=== PATIENT | female | born 1945 | race Caucasian/White ===

== ENCOUNTER → 2016-07-25 | Outpatient (CLI) | payer OTHER ==
[~2016-07-25] MED LIST: ZNTT/150 PO
== END | disposition home or self-care (01) ==
LOC: C.PAPS 15:21
PROVIDERS: ATTEND Obstetrics & Gynecology
DX: Z12.4 Encounter for screening for malignant neoplasm of cervix (principal)

== ENCOUNTER → 2016-10-14 | Outpatient (CLI) | payer OTHER ==
--- NOTE | 2016-10-14 15:12 | DIAGNOSTIC IMAGING REPORT ---
TWO VIEW CHEST CLINICAL HISTORY: Bronchitis. Cough. FINDINGS: PA and lateral chest radiographs are compared to study dated 06/19/2013. The cardiomediastinal silhouette is unremarkable. Chronic interstitial thickening is similar to previous. Patchy airspace consolidation is identified at the right lung base. Calcified granulomas is seen in the left upper lobe. There is a questionable 10 mm left upper lobe nodular density. There is no pleural effusion or pneumothorax. The skeletal structures are osteopenic. Degenerative change and scoliosis are identified in the thoracic spine. IMPRESSION: 1. There is patchy airspace consolidation at the right lung base typical in appearance for pneumonia. Radiographic follow-up in 2-3 weeks is recommended to document resolution. 2. There is a questionable 10 mm nodular density in the left upper lobe. This may be on an inflammatory basis and should also be reassessed at follow-up. If this fails to resolve then a chest CT should be considered for further interrogation. Electronically signed by: Kiran Schreiber M.D. 10/14/2016 3:10 PM Dictated Date/Time: 10/14/2016 3:08 PM
== END | disposition home or self-care (01) ==
LOC: C.RAD 14:34
PROVIDERS: ATTEND Internal Medicine
DX: J40 Bronchitis, not specified as acute or chronic (principal)

== ENCOUNTER → 2016-11-04 | Outpatient (CLI) | payer OTHER ==
--- NOTE | 2016-11-04 09:39 | DIAGNOSTIC IMAGING REPORT ---
CHEST 2 VIEWS ROUTINE CLINICAL HISTORY: Evaluate for pneumonia. COMPARISON STUDY: Chest radiograph October 14, 2016. FINDINGS: There is no pneumothorax or pleural effusion. Right lower lobe airspace opacity has improved since exam of October 14, 2016. There is minimal residual linear opacity. A 1 cm nodular left midlung density is noted. This may be partially calcified. There is no evidence of pulmonary edema. Cardiac size is normal. IMPRESSION: 1. Interval improvement in right lower lobe airspace opacity with mild residual linear opacity which favors atelectasis or scarring. 2. Persistent 1 cm nodular left midlung density. This may be partially calcified and may be benign however a follow-up chest CT is recommended. Electronically signed by: Livan Garcia M.D. 11/04/2016 9:38 AM Dictated Date/Time: 11/04/2016 9:35 AM
== END | disposition home or self-care (01) ==
LOC: C.RAD 09:19
PROVIDERS: ATTEND Internal Medicine
DX: J18.9 Pneumonia, unspecified organism (principal)

== ENCOUNTER → 2016-11-28 | Outpatient (CLI) | payer OTHER ==
[~2016-11-28] MED LIST changes: +OPTIRAY 320 IV PRN
--- NOTE | 2016-11-28 15:37 | DIAGNOSTIC IMAGING REPORT ---
(CHEST) THORAX WITH CLINICAL HISTORY: 71 years-old Female presenting with PULMONARY NODULE. TECHNIQUE: Multidetector CT imaging of the chest was performed after the administration of intravenous contrast. IV contrast: 119 mL of Optiray 320. A dose lowering technique was used consistent with the principles of ALARA (as low as reasonably achievable). COMPARISON: Correlation made to chest x-ray from 11/04/2016. CT DOSE (mGy.cm): The estimated cumulative dose is 171.98 mGy.cm. FINDINGS: [employer] topogram: Unremarkable. On soft tissue windows, normal thyroid and thoracic inlet. No axillary, supraclavicular, hilar, or mediastinal lymphadenopathy. Minimal atherosclerosis of aortic arch. Normal heart size. No pericardial or pleural effusion. Small hypodensity in the posterior right hepatic lobe at the dome, indeterminate but possibly hepatic cyst or hamartoma. On lung windows, focal nodule in the left upper lobe along the major fissure measuring 11 mm containing a focus of calcification eccentrically (series 4 image 90). A low-density focus within this nodule demonstrates Hounsfield's units down to -47 suggestive of a potential fat component, although this is a diminutive component. Bandlike opacities at the lung bases, right greater than left, likely atelectasis. Mild bronchial wall thickening noted in the right lower lobe as well as vague groundglass opacities. On bone windows, multilevel degenerative change. IMPRESSION: 1. 11 mm solid left upper lobe pulmonary nodule. This may potentially represent a benign pulmonary hamartoma given the suspected presence of fat. However, as the possible region of fat is such a diminutive component, it is difficult to be definitive. Follow-up is recommended per Fleischner Society 2017 recommendations. 2. Vague groundglass opacities with mild bronchial wall thickening in the right lower lobe is concerning for bronchiolitis. 3. Bibasilar atelectasis greater on the right. Please refer to below summary of Fleischner Society 2017 recommendations for follow-up of incidental CT nodules (Roro Villagran et al. Guidelines for management of incidental pulmonary nodules detected on CT images: From the Fleischner Society 2017. Radiology 2017; 284: 228-243.) SOLID NODULES Single nodule; size <6 mm * Low risk patients: No routine follow-up * High risk patients: Optional CT at 12 months Single nodule; size 6-8 mm * Low risk patients: CT at 6-12 months, then consider CT at 18-24 months * High risk patients: CT at 6-12 months, then at 18-24 months Single nodule; size >8 mm * Either low or high risk patients: Considered CT at 3 months, PET/CT, or tissue sampling Multiple nodules; size <6 mm * Low risk patients: No routine follow up * High risk patients: Optional CT at 12 months Multiple nodules; size 6-8 mm * Low risk patients: CT at 3-6 months, then consider CT at 18-24 months * High risk patients: CT at 3-6 months, then at 18-24 months Multiple nodules; size >8 mm * Low risk patients: CT at 3-6 months, then consider at 18-24 months * High risk patients: CT at 3-6 months, then at 18-24 months Note: These guidelines apply to incidental nodules. These guidelines did not apply to patients younger than 35 years, immunocompromised patients, or patients with cancer. * Low risk patients: Minimal or absent history of smoking and/or other known risk factors * High risk patients: History of smoking, exposure to other carcinogens, emphysema, fibrosis, upper lobe location, family history of lung cancer, etc. * If a nodule up to 8 mm is partly solid or is ground glass further follow-up is required after 24 months to exclude possible slow growing adenocarcinoma SUBSOLID NODULES Single ground-glass nodule * Nodule size < 6 mm: No routine follow-up * Nodule size > or = 6 mm: CT at 6-12 months to confirm persistence, then CT every 2 years until 5 years Single part-solid nodule * Nodule size < 6 mm: No routine follow-up * Nodules size > or = 6 mm: CT at 3-6 months to confirm persistence. If unchanged and solid component remains < 6 mm, annual CT should be performed for 5 years Multiple nodules * Nodule size < 6 mm: CT at 3-6 months. If stable, consider CT at 2 and 4 years. * Nodules size > or = 6 mm: CT at 3-6 months. Subsequent management based on the most suspicious nodule(s) Electronically signed by: Ricardo Phillips M.D. 11/28/2016 3:36 PM Dictated Date/Time: 11/28/2016 3:26 PM
== END | disposition home or self-care (01) ==
LOC: C.CTS 15:09
PROVIDERS: ATTEND Internal Medicine
DX: R91.1 Solitary pulmonary nodule (principal); R91.8 Other nonspecific abnormal finding of lung field

== ENCOUNTER → 2016-12-05 | Outpatient (CLI) | payer OTHER ==
[~2016-12-05] MED LIST changes: -OPTIRAY 320 IV PRN
[2016-12-05 15:51] LABS: BASO % 0.1 %; BASO ABS # 0.01 K/uL (0-0.2); COMPLETE YES; EOS % 0.8 %; HEMATOCRIT 44.3 % (37-47); IG% 0.3 %; LYMPH % 27.1 %; LYMPH ABS # 2.07 K/uL (1.2-3.4); MEAN CELL VOLUME 94.7 fL (80-100); MEAN CORPUSCULAR HEMOGLOBIN 31.8 pg (25-34); MEAN CORPUSCULAR HGB CONC 33.6 g/dl (32-36); MEAN PLATELET VOLUME 10.8 fL (7.4-10.4); MONO % 6.3 %; NEUT % 65.4 %; PLATELET COUNT 261 K/uL (130-400); RED BLOOD COUNT 4.68 M/uL (4.2-5.4); WHITE BLOOD COUNT 7.64 K/uL (4.8-10.8)
[2016-12-05 15:59] LABS: ALT/SGPT 43 U/L (12-78); AST/SGOT 16 U/L (15-37); BLOOD UREA NITROGEN 17 mg/dl (7-18); BUN/CREATININE RATIO 17.7 (10-20); CALCIUM 9.2 mg/dl (8.5-10.1); CARBON DIOXIDE 32 mmol/L (21-32); CHLORIDE 101 mmol/L (98-107); CREATININE 0.97 mg/dl (0.60-1.20); GLUCOSE 103 mg/dl (70-99); POTASSIUM 3.7 mmol/L (3.5-5.1); SODIUM 138 mmol/L (136-145)
[2016-12-05 16:02] LABS: ALB/GLOB RATIO 1.1 (0.9-2); ALKALINE PHOSPHATASE 90 U/L (45-117)
== END | disposition home or self-care (01) ==
LOC: C.LABSPEC 14:43
PROVIDERS: ATTEND Internal Medicine
DX: L29.9 Pruritus, unspecified (principal)

== ENCOUNTER → 2017-03-31 | Outpatient (CLI) | payer OTHER ==
[2017-03-31 14:29] LABS: CHOLESTEROL 224 mg/dl (0-200); CHOLESTEROL/HDL RATIO 2.5; HDL CHOLESTEROL 90 mg/dl; TRIGLYCERIDES 112 mg/dl (0-150); VERY LOW DENSITY LIPOPROT CALC 22 mg/dl
[2017-04-01 07:24] LABS: ESTIMATED AVERAGE GLUCOSE 123 mg/dl; HA1C FLAG Normal (Normal)
== END | disposition home or self-care (01) ==
LOC: C.LABSPEC 13:05
PROVIDERS: ATTEND Internal Medicine
DX: R73.9 Hyperglycemia, unspecified (principal); E78.5 Hyperlipidemia, unspecified

== ENCOUNTER → 2017-04-02 | Outpatient (CLI) | payer OTHER | END | disposition home or self-care (01) | LOC: C.LABSPEC 12:19 | PROVIDERS: ATTEND Internal Medicine | DX: Z12.11 Encounter for screening for malignant neoplasm of colon (principal) ==

== ENCOUNTER → 2017-05-23 | Outpatient (CLI) | payer OTHER ==
--- NOTE | 2017-05-26 15:51 | MAMMOGRAPHY REPORT ---
BILATERAL DIGITAL SCREENING MAMMOGRAM TOMOSYNTHESIS WITH CAD: 05/23/2017 CLINICAL HISTORY: Routine screening. TECHNIQUE: Breast tomosynthesis in addition to standard 2D mammography was performed. Current study was also evaluated with a Computer Aided Detection (CAD) system. COMPARISON: Comparison is made to exams dated: 02/29/2016 mammogram, 01/10/2015 mammogram, 11/03/2013 ma mmogram, 08/13/2012 mammogram, 05/16/2011 mammogram, and 03/23/2010 mammogram - [facility] enter. BREAST COMPOSITION: The tissue of both breasts is heterogeneously dense, which may obscure small mas ses. FINDINGS: No suspicious masses, calcifications, or areas of architectural distortion are noted in ei ther breast. There has been no significant interval change compared to prior exams. IMPRESSION: ACR BI-RADS CATEGORY 2: BENIGN There is no mammographic evidence of malignancy. A 1 year screening mammogram is recommended. The pa tient will receive written notification of the results. Approximately 10% of breast cancers are not detected with mammography. A negative mammographic report should not delay biopsy if a clinically suggestive mass is present. Shivani Heard M.D. /:05/23/2017 13:59:38 Senior Military Analyst: Freddie BARROW(Kacie)(Teddy), [facility] letter sent: Normal 1/2 BI-RADS Code: ACR BI-RADS Category 2: Benign
== END | disposition home or self-care (01) ==
LOC: C.MAMM 13:37
PROVIDERS: ATTEND Obstetrics & Gynecology
DX: Z12.31 Encounter for screening mammogram for malignant neoplasm of breast (principal)

== ENCOUNTER → 2017-06-06 | Outpatient (CLI) | payer OTHER ==
[~2017-06-06] MED LIST changes: +OPTIRAY 320 IV PRN; +RANI150T85 PO; -ZNTT/150 PO
--- NOTE | 2017-06-06 10:31 | DIAGNOSTIC IMAGING REPORT ---
CHEST CT WITH CONTRAST CT DOSE: 183.93 mGy.cm HISTORY: Follow-up study in a patient with pulmonary nodule LT UPPER LOBE PULMONARY NODULE TECHNIQUE: Multiaxial CT images of the chest were performed following the intravenous administration of contrast. A dose lowering technique was utilized adhering to the principles of ALARA. COMPARISON: CT chest 11/28/2016. FINDINGS: Thyroid appears homogeneous. No pathologically enlarged lymph nodes of the chest identified. Mildly prominent 8 mm AP window lymph nodes are seen with areas of adjacent calcification. Calcified left hilar lymph nodes are seen. Heart is normal in size without pericardial effusion. Thoracic aorta is normal in both course and caliber without aneurysm or dissection. The opacified pulmonary arterial tree appears unremarkable. There is no pneumothorax, pleural effusion or focal airspace consolidation. Minimal dependent bibasilar atelectasis. Partially calcified 3 mm nodule of the right upper lobe is seen on image 105 series 4, unchanged. 3 mm nodule of the right middle lobe is seen on image 165 series 4, unchanged. Scattered calcified granulomas are seen within the lingula. 4 mm area of fissural lymph node is seen involving the left major fissure, image 155 series 4. Lobulated soft tissue attenuating lesion with adjacent calcifications along the superior margin again seen, 11 x 8 mm which is unchanged as seen on image 124 series 4 within the left upper lobe abutting the major fissure. Again, this lesion may contain a separate fat however the fact component is not measurable. Central airways are patent. No acute abnormality of the imaged upper abdomen identified. 7 mm low attenuating lesion of the hepatic dome suggests hepatic cyst. Soft tissues are unremarkable. Bones appear intact. Severe intervertebral disc space narrowing redemonstrated at T12-L1 and L1-L2. IMPRESSION: 1. Unchanged lobulated left upper lobe pulmonary nodule abutting the major fissure with peripheral calcifications and the possibility of central internal macroscopic fat redemonstrated which may reflect a hamartoma. Stability from prior study suggests benign etiology, however continued follow-up recommended. 2. Additional unchanged small pulmonary nodules as above. 3. Evidence of prior granulomatous disease. Please refer to below summary of Fleischner criteria recommendations for follow-up of incidental CT nodules (Roro Villagran, Guidelines for management of small pulmonary nodules detected on CT scans: A statement from the Fleischner Society, Radiology 237: [phone].) SOLID NODULES Solitary nodule size: <6 mm * Low risk patients: no follow-up needed * high risk patients: optional CT at 12 months Solitary nodule size: 6-8 mm * Low risk patients: follow-up at 6-12 months, then consider further follow-up at 18-24 months * high risk patients: initial follow-up CT at 6-12 months and then at 18-24 months if no change Solitary nodule size: >8 mm * either low or high risk patients - consider follow-up CT at 3 months, and/or CT-PET, and/or biopsy Multiple nodules size: <6 mm * Low risk patients: no routine follow-up * high risk patients: optional CT at 12 months Multiple nodules size: 6-8 mm * Low risk patients: follow-up at 3-6 months, then consider further follow-up at 18-24 months * high risk patients: follow-up at 3-6 months, then at 18-24 months if no change Multiple nodules size: >8 mm * Low risk patients: follow-up at 3-6 months, then consider further follow-up at 18-24 months * high risk patients: follow-up at 3-6 months, then at 18-24 months if no change Note: newly detected indeterminate nodule in persons 35 years of age or older. * Low risk patients: minimal or absent history of smoking and/or other known risk factors * high risk patients: history of smoking or of other known risk factors (e.g. first degree relative with lung cancer, or exposure to asbestos, radon, uranium) * if a nodule up to 8 mm is partly solid or is ground glass further follow-up is required after 24 months to exclude possible slow growing adenocarcinoma (NIRAV) The above report was generated using voice recognition software. It may contain grammatical, syntax or spelling errors. Electronically signed by: Joe Watson M.D. 06/06/2017 10:29 AM Dictated Date/Time: 06/06/2017 10:21 AM
== END | disposition home or self-care (01) ==
LOC: C.CTS 10:07
PROVIDERS: ATTEND Internal Medicine
DX: R91.1 Solitary pulmonary nodule (principal)

== ENCOUNTER 2020-07-24 23:51 | Observation (INO) ==
[2020-07-25] MEDS ORDERED: ALUMINUM/MAGNESIUM SUSP 30 ML UDC PO STA (00:07)
[2020-07-25] MEDS ORDERED: ASPIRIN CHEW 324 MG PO STA (00:07)
--- NOTE | 2020-07-25 00:18 | Emergency Department Note ---
Impression & Plan Chest pain, Elevated troponin I level, Abnormal EKG ED Provider Note NAME: DELMY LAMBERT AGE: 74 SEX: F : 1945 ARRIVES VIA: Walk-In INFORMANT: Patient, ED PROVIDER(S): Sriram Barrett DO CHIEF COMPLAINT: Chest pain HPI: The patient is a 74-year-old female who presented to the emergency department from home for an evaluation of chest pain. The patient has had multiple episodes of chest pain while at rest. She describes it as a sharp pain across her upper chest. She states that it goes to her shoulders as well as int o her neck. She thought it was related to her GERD history. She tried taking antacids for this without relief. She states she then had a couple episodes where she belched and then the pain somewhat improved. The patient had 3 different episodes this evening. The most recent episode was around 11:30 PM. She presented to the emergency department with her significant other because of the pain. She denies having any shortness of breath. She denies having any fever or cough. The patient denies having any lower extremity swelling. She has had no recent illnesses cough or fever. ROS: See above HPI for pertinent positives & negatives. A total of 10 systems reviewed and were otherwise negative. PAST MEDICAL HISTORY: See Below PAST SURGICAL HISTORY: See Below FAMILY HISTORY: See Below SOCIAL HISTORY: See Below HOME MEDICATIONS: See Below ALLERGIES: See Below VITALS: See Below PHYSICAL EXAMINATION: GENERAL: Patient is awake alert in no acute distress patient is resting comfortably and showing no signs of anxiety EYES: The conjunctivae are clear. The pupils are round and reactive. EARS, NOSE, MOUTH AND THROAT: The nose is without any evidence of any deformity. NECK: The neck is nontender and supple. RESPIRATORY: Normal respiratory effort is noted there is no evidence of wheezing rhonchi or rales CARDIOVASCULAR: Regular rate and rhythm noted there no murmurs rubs or gallops normal S1 normal S2. GASTROINTESTINAL: The abdomen is soft. Abdomen is nontender. MUSCULOSKELETAL/EXTREMITIES: There is no evidence of gross deformity full range of motion is noted in the hips and shoulders. SKIN: There was no pedal edema. There was no calf tenderness. NEUROLOGIC: Patient is awake alert and oriented x3. MEDICAL DECISION MAKING: The patient is a 74-year-old female who presented to the emergency department f or an evaluation of chest pain. The patient describes multiple episodes of chest discomfort that radiated to her shoulder as well as her neck that occurred prior to arrival. The patient at this time has no pain. She was treated with aspirin and Maalox in the emergency department. I discussed the patient's laboratory and radiographic studies with her. I also discussed the limitations of the emergency department work-up for chest pain with her. She was found to have a new right bundle branch block on her EKG compared to 2014. Whereas this is not specific for coronary syndrome paired with an elevation in her troponin I feel this may represent a high risk situation. For this reason I will discuss her case with the on-call [facility]. I feel the patient may require further inpatient testing. Triage Nursing notes reviewed. Prior medical records reviewed Vital Signs: reviewed and remarkable for elevated blood pressure. Differential diagnosis: Cardiac ischemia, aortic dissection, pulmonary embolism, pneumothorax, pneumonia, pericarditis, myocarditis, esophageal rupture, GERD, cholecystitis, pancreatitis, musculoskeletal, as well as other pathologies. ER treatment provided: See below Diagnostics interpreted by me: ECG: EKG was obtained in the emergency department. My interpretation is normal sinus rhythm at 72 bpm. There were no PVCs noted. Right bundle branch block pattern was noted. This was compared to a tracing from June 192013. The right bundle branch block pattern is new compared to the earlier tracing. Cardiac Monitoring: An order was placed for continuous cardiac monitoring. The monitor shows a rate of 85 bpm with sinus rhythm. Laboratory studies: As stated above and show below. Imaging studies: See below Consultation(s): 0105: Dr. White was notified about the patient. She is the on-call [facility] this evening. Past Med/Surg History Medical History Chest pain GERD (gastroesophageal reflux disease) Reflux Social History Smoking Status: Never smoker Feels Safe at Home: Yes Allergies Allergies Allergy/AdvReac Type Severity Reaction Status Date / Time adhesive Allergy Mild Unknown Unverified 07/25/20 00:21 Home Meds Home Medications Medication Instructions Recorded Confirmed famotidine [Pepcid] 20 - 40 mg PO DAILY PRN 07/25/20 07/25/20 pseudoephedrine HCl [Sudafed] 60 mg PO Q6H PRN 07/25/20 07/25/20 Results & Data (ED) Vital Signs Vital Signs - 24 hr 07/25/20 00:01 07/25/20 00:18 Temperature 36.8 C Temperature Source Temporal Artery Scan Pulse Rate 73 69 Pulse Rate from SpO2 Sensor 69 Respiratory Rate 18 18 Respiratory Effort / Characteristics Non-Labored Spontaneous Respiratory Depth Normal Blood Pressure 156/94 H 170/94 H Blood Pressure Mean 114 119 Pulse Oximetry 98 99 Oxygen Delivery Method Room Air Room Air Sepsis Recent Fever Within 48 Hours No Sepsis New/Unexplained Change in Mental Status No Sepsis Action Taken by Nursing No Action Required Home Medications Current Medication List: was personally reviewed by me Laboratory Data Attestation: I reviewed the patient's lab results. Result diagrams: 07/25/20 00:19 07/25/20 00:19 Lab Results 07/25/20 07/25/20 07/25/20 Range/Units 00:10 00:19 00:19 WBC 6.86 (4.8-10.8) K/uL RBC 4.41 (4.2-5.4) M/uL Hgb 14.1 (12.0-16.0) g/dL Hct 41.1 (37-47) % MCV 93.2 (80-100) fL MCH 32.0 (25-34) pg MCHC 34.3 (32-36) g/dL RDW Std Deviation 45.8 (36.4-46.3) fL RDW Coeff of Tanika 13.3 (11.5-14.5) % Plt Count 259 (130-400) K/uL MPV 10.0 (7.4-10.4) fL Immature Gran % (Auto) 0.0 % Neut % (Auto) 58.8 % Lymph % (Auto) 31.6 % [place] % (Auto) 7.6 % Eos % (Auto) 1.7 % Baso % (Auto) 0.3 % Neut # (Auto) 4.03 (1.4-6.5) K/uL Lymph # (Auto) 2.17 (1.2-3.4) K/uL [place] # (Auto) 0.52 (0.11-0.59) K/uL Eos # (Auto) 0.12 (0-0.5) K/uL Baso # (Auto) 0.02 (0-0.2) K/uL Immature Gran # (Auto) 0.00 (0.00-0.02) K/uL PT 10.0 (9.0-12.0) Seconds INR 1.0 (0.9-1.1) APTT 26.7 (21.0-31.0) Seconds PTT Ratio 1.0 Sodium (136-145) mmol/L Potassium (3.5-5.1) mmol/L Chloride (98-107) mmol/L Carbon Dioxide (21-32) mmol/L Anion Gap (3-11) BUN (7-18) mg/dl Creatinine (0.6-1.2) mg/dl Est Cr Clr Drug Dosing ml/min Est GFR ( Amer) Est GFR (Non-Af Amer) BUN/Creatinine Ratio (10-20) Glucose (70-99) mg/dl Calcium (8.5-10.1) mg/dl Total Bilirubin (0.2-1) mg/dl AST (15-37) U/L ALT (12-78) U/L Alkaline Phosphatase (45-117) U/L Troponin I (0-0.045) ng/ml Total Protein (6.4-8.2) gm/dl Albumin (3.4-5.0) gm/dl Globulin (2.5-4.0) gm/dl Albumin/Globulin Ratio (0.9-2) Lipase (73-393) U/L Urine Color Yellow Urine Appearance Clear (Clear) Urine pH 6.5 (4.5-7.5) Ur Specific [place] 1.013 (1.000-1.030) Urine Protein Negative (Negative) Urine Glucose (UA) Negative (Negative) Urine Ketones Negative (Negative) Urine Blood Trace H (Negative) Urine Nitrite Negative (Negative) Urine Bilirubin Negative (Negative) Urine Urobilinogen Negative (Negative) Ur Leukocyte Esterase Trace H (Negative) Urine WBC (Auto) 5-10 H (0-5) /hpf Urine RBC (Auto) 0-4 (0-4) /hpf U Hyaline Cast (Auto) 0 (0-5) /lpf U Epithel Cells (Auto) 0-5 (0-5) /lpf Urine Bacteria (Auto) Negative (Negative) 07/25/20 Range/Units 00:19 WBC (4.8-10.8) K/uL RBC (4.2-5.4) M/uL Hgb (12.0-16.0) g/dL Hct (37-47) % MCV (80-100) fL MCH (25-34) pg MCHC (32-36) g/dL RDW Std Deviation (36.4-46.3) fL RDW Coeff of Tanika (11.5-14.5) % Plt Count (130-400) K/uL MPV (7.4-10.4) fL Immature Gran % (Auto) % Neut % (Auto) % Lymph % (Auto) % [place] % (Auto) % Eos % (Auto) % Baso % (Auto) % Neut # (Auto) (1.4-6.5) K/uL Lymph # (Auto) (1.2-3.4) K/uL [place] # (Auto) (0.11-0.59) K/uL Eos # (Auto) (0-0.5) K/uL Baso # (Auto) (0-0.2) K/uL Immature Gran # (Auto) (0.00-0.02) K/uL PT (9.0-12.0) Seconds INR (0.9-1.1) APTT (21.0-31.0) Seconds PTT Ratio Sodium 137 (136-145) mmol/L Potassium 3.7 (3.5-5.1) mmol/L Chloride 104 (98-107) mmol/L Carbon Dioxide 30 (21-32) mmol/L Anion Gap 3.0 (3-11) BUN 21 H (7-18) mg/dl Creatinine 1.10 (0.6-1.2) mg/dl Est Cr Clr Drug Dosing 39.5 ml/min Est GFR ( Amer) 57.7 Est GFR (Non-Af Amer) 49.8 BUN/Creatinine Ratio 18.8 (10-20) Glucose 118 H (70-99) mg/dl Calcium 9.2 (8.5-10.1) mg/dl Total Bilirubin 0.4 (0.2-1) mg/dl AST 26 (15-37) U/L ALT 39 (12-78) U/L Alkaline Phosphatase 115 (45-117) U/L Troponin I 0.119 H* (0-0.045) ng/ml Total Protein 7.1 (6.4-8.2) gm/dl Albumin 3.6 (3.4-5.0) gm/dl Globulin 3.5 (2.5-4.0) gm/dl Albumin/Globulin Ratio 1.0 (0.9-2) Lipase 274 (73-393) U/L Urine Color Urine Appearance (Clear) Urine pH (4.5-7.5) Ur Specific [place] (1.000-1.030) Urine Protein (Negative) Urine Glucose (UA) (Negative) Urine Ketones (Negative) Urine Blood (Negative) Urine Nitrite (Negative) Urine Bilirubin (Negative) Urine Urobilinogen (Negative) Ur Leukocyte Esterase (Negative) Urine WBC (Auto) (0-5) /hpf Urine RBC (Auto) (0-4) /hpf U Hyaline Cast (Auto) (0-5) /lpf U Epithel Cells (Auto) (0-5) /lpf Urine Bacteria (Auto) (Negative) Administered Medications Discontinued Medications Al Hydrox/Mg Hydrox/Simethicone (Aluminum/Magnesium Susp 30 Ml Udc) 30 ml PO NOW STA Stop: 07/25/20 00:08 Last Admin: 07/25/20 00:24 Dose: 30 ml Documented by: [id number] Aspirin (Aspirin Chew 324 Mg) 324 mg PO NOW STA Stop: 07/25/20 00:08 Last Admin: 07/25/20 00:24 Dose: 324 mg Documented by: [id number] Imaging Data Attestation: I personally reviewed and interpreted this imaging study as follows: My Impression: 1 view chest x-ray was obtained in the emergency department. My interpretation is no free air, no definite infiltrate, no acute disease, there was calcification in the right hilum. This appears unchanged compared to a chest x-ray from June 192013. Discharge Plan Visit Data Chief Complaint: Chest Pain Stated Complaint: DON'T FEEL RIGHT,PAIN IN CHEST,SHOULDERS,HEARBURN ED Provider: Sriram Barrett Discharge Problem: Chest pain, Elevated troponin I level, Abnormal EKG Patient Disposition: Being Evaluated by Hospitalist Condition: Good Forms Stand Alone Forms: My [facility] Prescriptions Prescriptions: No Action famotidine [Pepcid] 20 mg Tablet 20 - 40 mg PO DAILY PRN (Reason: Heartburn) RF: 0 pseudoephedrine HCl [Sudafed] 60 mg Tablet 60 mg PO Q6H PRN (Reason: Congestion) RF: 0 Referrals Referrals: Lizandro Garcia MD [Primary Care Provider] - Discharge Problem: Chest pain Qualifiers: Chest pain type: unspecified Qualified Code(s): R07.9 - Chest pain, unspecified
[2020-07-25 00:30] LABS: Basophils # (auto) 0.02 K/uL (0-0.2); Basophils % (auto) 0.3 %; Eosinophils # (auto) 0.12 K/uL (0-0.5); Eosinophils % (auto) 1.7 %; Hematocrit (blood only) 41.1 % (37-47); Hemoglobin 14.1 g/dL (12.0-16.0); Lymphocytes # (auto) 2.17 K/uL (1.2-3.4); Lymphocytes % (auto) 31.6 %; Mean Corpuscular Hgb Conc 34.3 g/dL (32-36); Mean Corpuscular Volume 93.2 fL (80-100); Monocytes # (auto) 0.52 K/uL (0.11-0.59); Monocytes % (auto) 7.6 %; Neutrophils # (auto) 4.03 K/uL (1.4-6.5); Neutrophils % (auto) 58.8 %; Platelet Count 259 K/uL (130-400); RDW Coefficient of Variation 13.3 % (11.5-14.5); RDW Standard Deviation 45.8 fL (36.4-46.3); Red Blood Count 4.41 M/uL (4.2-5.4); White Blood Count 6.86 K/uL (4.8-10.8)
[2020-07-25 00:39] LABS: Appearance Urine Clear (Clear); Bacteria Urine Automated Negative (Negative); Bilirubin Urine Negative (Negative); Blood Urine Trace (Negative); Cast Urine Automated 0 /lpf (0-5); Color Urine Yellow; Epithelial Cell Urine Auto 0-5 /lpf (0-5); Glucose Urine UA Negative (Negative); Ketones Urine Negative (Negative); Leukocyte Esterase Urine Trace (Negative); Nitrite Urine Negative (Negative); Protein Urine Negative (Negative); RBC Urine Automated 0-4 /hpf (0-4); Specific Gravity Urine 1.013 (1.000-1.030); Urobilinogen Urine Negative (Negative); pH Urine 6.5 (4.5-7.5)
[2020-07-25 00:44] LABS: Partial Thromboplastin Time 26.7 Seconds (21.0-31.0)
[2020-07-25 00:48] LABS: Albumin Level 3.6 gm/dl (3.4-5.0); BUN Creatinine Ratio 18.8 (10-20); Calcium 9.2 mg/dl (8.5-10.1); Creatinine Clr Calc Pharmacy 39.5 ml/min; Est GFR (African American) 57.7; Est GFR (Non-African American) 49.8; Potassium 3.7 mmol/L (3.5-5.1)
[2020-07-25 00:53] LABS: Bilirubin,Total 0.4 mg/dl (0.2-1); Globulin 3.5 gm/dl (2.5-4.0); Total Protein 7.1 gm/dl (6.4-8.2); Troponin I 0.119 ng/ml (0-0.045)
[2020-07-25 02:19] LABS: Influenza A virus by PCR Negative (Neg); Influenza B virus by PCR Negative (Neg); RSV by PCR Negative (Neg); SARS CoV2 RNA(COVID-19) InHosp NEGATIVE (Negative)
--- NOTE | 2020-07-25 02:53 | History & Physical Report ---
Date of Service July 25, 2020 Assessment & Plan (1) Chest pain: 74yo C female presenting with several episodes of bandlike chest pain over the last 3 days. Patient had 3 episodes today. Troponin is elevated at 0.119. EKG with new RBBB. Patient presently with no chest discomfort. No history of CAD, DM, HTN or HLP. Patient is a non-smoker -Admit to medical with telemetry -Trend troponin q 6 hours. If repeat troponin is elevated will initiate heparin gtt -Check 2D echo -Check Lipid panel and Hgb AIC for risk stratification for possible CAD -ASA 81mg po daily for now -Nitro SL PRN chest pain -Cardiology consultation appreciated Present on Admission?: Yes (2) GERD (gastroesophageal reflux disease): Chronic -Continue Pepcid 40mg po daily F/E/N- Heplock. Electrolytes WNL - check Mg and replete as needed, NPO for now Ppx - SCDs Code - Full per discussion with patient Dispo - Observation to medical with telemetry Present on Admission?: Yes History of Present Illness Chief Complaint: chest Primary Care Provider: Lizandro Garcia MD Coni Kerns is a pleasant 74yo C female with history of GERD presenting with chest pain. Patient had initial episode of chest pain on 07/21/20. She was sitting at rest when she developed sudden onset of chest discomfort - bandlike across anterior chest and into her back. Pain was severe, 10/10 and lasted 1-2 minutes. She had associated nausea. Patient had recurrence of chest pain yesterday 07/24/20 x 3 episodes. Episodes occurred while patient was at rest and lasted 1-2 minutes. She had nausea as well as feeling hot. She has had increase in belching over the last several days as well. She denies SOB/palpitations/abdominal pain/vomiting/diarrhea/dizziness. Patient reports becoming mildly SOB with exertion such as climbing stairs - ongoing for "a while". She denies exertional chest discomfort No personal history of DM, HLP, CAD. No prior CHF or arrhythmia. She has never had a cardiac catheterization or seen a honing machine try out setter. She did have a stress test many years ago. No additional complaints at this time. ER Course: Maalox, ASA Allergies Allergy/AdvReac Type Severity Reaction Status Date / Time adhesive Allergy Mild Unknown Unverified 07/25/20 00:21 Home Medications Medication Instructions Recorded Confirmed Type famotidine [Pepcid] 20 - 40 mg PO DAILY PRN 07/25/20 07/25/20 History pseudoephedrine HCl [Sudafed] 60 mg PO Q6H PRN 07/25/20 07/25/20 History Past Med/Surg History Medical History (Updated 07/25/20 @ 03:51 by Daisy White DO) Chest pain GERD (gastroesophageal reflux disease) Surgical History (Updated 07/25/20 @ 03:44 by Daisy White DO) No significant past surgical history Family History (Updated 07/25/20 @ 03:44 by Daisy White DO) Other Diabetes Social History (Updated 07/25/20 @ 03:44 by Daisy White DO) Smoking Status: Never smoker Hx Alcohol Use: No Hx Substance Use: No Feels Safe at Home: Yes Review of Systems Review of Systems: All systems reviewed & are unremarkable except as noted in HPI & below Physical Exam Physical Exam: General: patient resting comfortably, NAD, non-toxic in appearance, AA&O x 4 Skin: warm, dry, intact, no rashes or lesions HEENT: NC/AT, PERRL, EOMI, anicteric sclera, conjunctiva without injection, external ear normal to inspection and nontender, nares patent, moist mucus membranes, dentition intact, no oropharyngeal lesions, neck supple, trachea midline, no LAD, no thyromegaly, no JVD Heart: +S1/S2, regular, no m/r/g, no reproducible chest wall pain or epigastric pain Lungs: equal air entry bilaterally, no rales/rhonchi/wheezes Abd: +BS, soft, NT/ND, no masses/organomegaly/ascites Ext: warm, 2+ pulses in UE/LE bilaterally, no clubbing/cyanosis or edema Neuro: nonfocal, patient AA&O x 4, speech intact, no facial droop, moving all extremities on command with equal strength 5/5 Results & Data Results & Data ([facility]) Vital Signs (Past 12 Hours) Vital Signs Temp Pulse Resp BP Pulse Ox 07/25/20 02:30 65 15 164/92 H 97 07/25/20 02:00 62 16 162/85 H 98 07/25/20 01:30 64 16 159/89 H 97 07/25/20 00:18 69 18 170/94 H 99 07/25/20 00:01 36.8 C 73 18 156/94 H 98 Laboratory Results Lab Results 07/25/20 07/25/20 07/25/20 Range/Units 00:10 00:19 00:19 WBC 6.86 (4.8-10.8) K/uL RBC 4.41 (4.2-5.4) M/uL Hgb 14.1 (12.0-16.0) g/dL Hct 41.1 (37-47) % MCV 93.2 (80-100) fL MCH 32.0 (25-34) pg MCHC 34.3 (32-36) g/dL RDW Std Deviation 45.8 (36.4-46.3) fL RDW Coeff of Tanika 13.3 (11.5-14.5) % Plt Count 259 (130-400) K/uL MPV 10.0 (7.4-10.4) fL Immature Gran % (Auto) 0.0 % Neut % (Auto) 58.8 % Lymph % (Auto) 31.6 % Ida % (Auto) 7.6 % Eos % (Auto) 1.7 % Baso % (Auto) 0.3 % Neut # (Auto) 4.03 (1.4-6.5) K/uL Lymph # (Auto) 2.17 (1.2-3.4) K/uL Ida # (Auto) 0.52 (0.11-0.59) K/uL Eos # (Auto) 0.12 (0-0.5) K/uL Baso # (Auto) 0.02 (0-0.2) K/uL Immature Gran # (Auto) 0.00 (0.00-0.02) K/uL PT 10.0 (9.0-12.0) Seconds INR 1.0 (0.9-1.1) APTT 26.7 (21.0-31.0) Seconds PTT Ratio 1.0 Sodium (136-145) mmol/L Potassium (3.5-5.1) mmol/L Chloride (98-107) mmol/L Carbon Dioxide (21-32) mmol/L Anion Gap (3-11) BUN (7-18) mg/dl Creatinine (0.6-1.2) mg/dl Est Cr Clr Drug Dosing ml/min Est GFR ( Amer) Est GFR (Non-Af Amer) BUN/Creatinine Ratio (10-20) Glucose (70-99) mg/dl Calcium (8.5-10.1) mg/dl Total Bilirubin (0.2-1) mg/dl AST (15-37) U/L ALT (12-78) U/L Alkaline Phosphatase (45-117) U/L Troponin I (0-0.045) ng/ml Total Protein (6.4-8.2) gm/dl Albumin (3.4-5.0) gm/dl Globulin (2.5-4.0) gm/dl Albumin/Globulin Ratio (0.9-2) Lipase (73-393) U/L Urine Color Yellow Urine Appearance Clear (Clear) Urine pH 6.5 (4.5-7.5) Ur Specific [place] 1.013 (1.000-1.030) Urine Protein Negative (Negative) Urine Glucose (UA) Negative (Negative) Urine Ketones Negative (Negative) Urine Blood Trace H (Negative) Urine Nitrite Negative (Negative) Urine Bilirubin Negative (Negative) Urine Urobilinogen Negative (Negative) Ur Leukocyte Esterase Trace H (Negative) Urine WBC (Auto) 5-10 H (0-5) /hpf Urine RBC (Auto) 0-4 (0-4) /hpf U Hyaline Cast (Auto) 0 (0-5) /lpf U Epithel Cells (Auto) 0-5 (0-5) /lpf Urine Bacteria (Auto) Negative (Negative) COVID-19 Eval Order SARS-CoV-2 (PCR) (Negative) Influenza Type A (PCR) (Neg) Influenza Type B (PCR) (Neg) RSV (RT-PCR) (Neg) 07/25/20 07/25/20 07/25/20 Range/Units 00:19 01:20 01:20 WBC (4.8-10.8) K/uL RBC (4.2-5.4) M/uL Hgb (12.0-16.0) g/dL Hct (37-47) % MCV (80-100) fL MCH (25-34) pg MCHC (32-36) g/dL RDW Std Deviation (36.4-46.3) fL RDW Coeff of Tanika (11.5-14.5) % Plt Count (130-400) K/uL MPV (7.4-10.4) fL Immature Gran % (Auto) % Neut % (Auto) % Lymph % (Auto) % Ida % (Auto) % Eos % (Auto) % Baso % (Auto) % Neut # (Auto) (1.4-6.5) K/uL Lymph # (Auto) (1.2-3.4) K/uL Ida # (Auto) (0.11-0.59) K/uL Eos # (Auto) (0-0.5) K/uL Baso # (Auto) (0-0.2) K/uL Immature Gran # (Auto) (0.00-0.02) K/uL PT (9.0-12.0) Seconds INR (0.9-1.1) APTT (21.0-31.0) Seconds PTT Ratio Sodium 137 (136-145) mmol/L Potassium 3.7 (3.5-5.1) mmol/L Chloride 104 (98-107) mmol/L Carbon Dioxide 30 (21-32) mmol/L Anion Gap 3.0 (3-11) BUN 21 H (7-18) mg/dl Creatinine 1.10 (0.6-1.2) mg/dl Est Cr Clr Drug Dosing 39.5 ml/min Est GFR ( Amer) 57.7 Est GFR (Non-Af Amer) 49.8 BUN/Creatinine Ratio 18.8 (10-20) Glucose 118 H (70-99) mg/dl Calcium 9.2 (8.5-10.1) mg/dl Total Bilirubin 0.4 (0.2-1) mg/dl AST 26 (15-37) U/L ALT 39 (12-78) U/L Alkaline Phosphatase 115 (45-117) U/L Troponin I 0.119 H* (0-0.045) ng/ml Total Protein 7.1 (6.4-8.2) gm/dl Albumin 3.6 (3.4-5.0) gm/dl Globulin 3.5 (2.5-4.0) gm/dl Albumin/Globulin Ratio 1.0 (0.9-2) Lipase 274 (73-393) U/L Urine Color Urine Appearance (Clear) Urine pH (4.5-7.5) Ur Specific [place] (1.000-1.030) Urine Protein (Negative) Urine Glucose (UA) (Negative) Urine Ketones (Negative) Urine Blood (Negative) Urine Nitrite (Negative) Urine Bilirubin (Negative) Urine Urobilinogen (Negative) Ur Leukocyte Esterase (Negative) Urine WBC (Auto) (0-5) /hpf Urine RBC (Auto) (0-4) /hpf U Hyaline Cast (Auto) (0-5) /lpf U Epithel Cells (Auto) (0-5) /lpf Urine Bacteria (Auto) (Negative) COVID-19 Eval Order CovFluRsv at [facility] SARS-CoV-2 (PCR) NEGATIVE (Negative) Influenza Type A (PCR) Negative (Neg) Influenza Type B (PCR) Negative (Neg) RSV (RT-PCR) Negative (Neg) Diagnostic Findings CXR - by my interpretation - lung nodule RIVAS present on prior study from 2017. Followup CT chest on 06/06/17 suggestive of hamartoma as well as evidence of prior granulomatous disease ECG Additional Comments: NSR at 72, RBBB present, new from prior study PG Care Time/CCT Total # of Minutes Spent Total Time Spent with Patient: Total time spent is greater than 50% in coordination of care (as documented) at patient's floor/unit and/or counseling patient: Coding Level of Care Code 39318 OBS Care - Level 2 Diagnoses Chest pain R07.9 Chest pain type: unspecified GERD (gastroesophageal reflux disease) K21.9 Esophagitis presence: esophagitis presence not specified (1) Chest pain Chest pain type: unspecified Qualified Code(s): R07.9 - Chest pain, unspecified (2) GERD (gastroesophageal reflux disease) Esophagitis presence: esophagitis presence not specified Qualified Code(s): K21.9 - Gastro-esophageal reflux disease without esophagitis
[2020-07-25] MEDS ORDERED: NITROGLYCERIN SL 0.4 MG/TAB TAB SL PRN (04:59)
[2020-07-25 06:05] LABS: Magnesium 2.4 mg/dl (1.8-2.4); Troponin I 0.082 ng/ml (0-0.045)
--- NOTE | 2020-07-25 06:50 | XRay Report ---
XR chest 1V portable HISTORY: 74 years-old Female Chest Pain acute atypical chest pain COMPARISON: Chest CT 06/06/2017, chest radiograph 11/04/2016 TECHNIQUE: Portable AP view of the chest FINDINGS: Cardiac silhouette is normal. Mild asymmetric right hilar prominence. No pneumothorax, pleural effusi on, airspace consolidation or overt pulmonary edema. Scattered calcified granulomata redemonstrated t hroughout the left lung. The previously noted noncalcified pulmonary nodules of the lungs are better characterized on comparison chest CT. Degenerative changes of the shoulders and spine. IMPRESSION: 1. No acute process. 2. Mild asymmetric right hilar fullness, possibly secondary to summation density with pulmonary vascu lature. Hilar adenopathy is also within the differential. ACT 112: Negative or not required by law. The above report was generated using voice recognition software. It may contain grammatical, syntax o r spelling errors. Electronically signed by: Joe Watson M.D. 07/25/2020 6:49 AM
[2020-07-25] MEDS ORDERED: amLODIPine BESYLATE 5 MG TAB PO ONE (09:04)
--- NOTE | 2020-07-25 09:08 | Cardiology Consultation ---
Date of Consultation July 25, 2020 Assessment & Plan (1) Chest pain: Given the increase in troponin in the presence of chest pain though atypical and new sob with exertion over the last couple of weeks as well as strong family history of cardiac events I think the best next step is to have Ms. Kerns proceed to a cardiac catheterization. Risks and benefits were discussed and she is agreeable. - consult Dr. Medina from interventional cardiology - continue NPO except for medications - initiate metoprolol and 2.5 mg of amlodipine for better blood pressure control - continue ASA as initiated in the ED - will start rosuvastatin 20 mg - repeat lipids ordered. Last lipids were drawn in 2019 and showed total cholesterol of 220, LDL 118, HDL 78 - no need for heparin drip at this time. - echo with LVH, no WMA, EF 60%. (2) Elevated troponin I level: (3) Hypertension: History of Present Illness Attending Physician: Bruce Santana History of Present Illness Ms. Kerns presented last night with complaints of bandlike chest pain starting on 07/21. It extended across her chest and wrapped around to her back. She initially thought maybe it was reflux as she has a history of GERD and she had had some belching but the pain was much more severe than she had experienced previously. It happened about 3 more times over the weekend lasting a few minutes. She had associated diaphoresis and nauseas. She was at rest when these instances occurred. She has not had the symptoms with exertion however she has noticed over the last couple of weeks that she is having more shortness of breath with exertion. She particularly noticed that she could no longer get up a flight of stairs without becoming dyspneic and that she was having trouble carrying on a conversation due to shortness of breath after ascending the stairs. EKG on admission shows new RBBB. Troponin peaked at 0.119 and has started to trend downward. Her blood pressures have been elevated. She is not sure what she normally runs as she does not check at home but she does note that she has never been told at the doctor that her blood pressure was high. She is otherwise quite healthy only taking occasional Sudafed and famotidine for GERD. She does have a family cardiac history. Her father at 62 of a heart attack and her mother had a heart attack at 81. She notes her grandfather also had an IN. She is a non smoker and no other tobacco use. Allergies Allergy/AdvReac Type Severity Reaction Status Date / Time adhesive Allergy Mild Unknown Unverified 07/25/20 00:21 Home Medications Medication Instructions Recorded Confirmed Type famotidine [Pepcid] 20 - 40 mg PO DAILY PRN 07/25/20 07/25/20 History pseudoephedrine HCl [Sudafed] 60 mg PO Q6H PRN 07/25/20 07/25/20 History Patient History Medical History (Updated 07/25/20 @ 09:14 by OLU Rodriguez) Chest pain GERD (gastroesophageal reflux disease) Surgical History (Updated 07/25/20 @ 03:44 by Daisy White DO) No significant past surgical history Family History (Updated 07/25/20 @ 03:44 by Daisy White DO) Other Diabetes Social History (Updated 07/25/20 @ 03:44 by Daisy White DO) Smoking Status: Never smoker Hx Alcohol Use: No Hx Substance Use: No Communication Ability: Effective Fun House Attendant Required: No Beliefs That Will Affect Care: None Current Living Situation: Spouse Feels Safe at Home: Yes Assistive Devices: Glasses Review of Systems Review of Systems: All systems reviewed & are unremarkable except as noted in HPI & below Physical Exam Constitutional: WD/WN, vitals as above Respiratory: normal respiratory effort, lungs clear to auscultation Cardiovascular: RRR, no murmur, no edema Musculoskeletal: no cyanosis or clubbing, extremities motor strength 5/5 Skin: no rashes, warm and dry Neurologic: moves all extremities and awake Psychiatric: A+Ox3, euthymic affect Results & Data ([facility]) Vital Signs (Past 12 Hours) Vital Signs Temp Pulse Pulse Resp BP BP Pulse Ox 07/25/20 08:00 79 07/25/20 05:12 36.7 C 78 24 173/113 H 98 07/25/20 04:30 63 14 155/89 H 95 07/25/20 04:00 66 14 141/83 H 97 07/25/20 03:30 63 14 157/88 H 99 07/25/20 03:00 69 15 158/95 H 98 07/25/20 02:30 65 15 164/92 H 97 07/25/20 02:00 62 16 162/85 H 98 07/25/20 01:30 64 16 159/89 H 97 07/25/20 00:18 69 18 170/94 H 99 07/25/20 00:01 36.8 C 73 18 156/94 H 98 (1) Chest pain Chest pain type: unspecified Qualified Code(s): R07.9 - Chest pain, unspecified
--- NOTE | 2020-07-25 09:11 | XCELERA ---
[id number]
[2020-07-25] MEDS ORDERED: SODIUM CHLORIDE 0.9% 1000ML 1,000 ML IV SCH ×2 (09:30→15:15)
[2020-07-25] MEDS: ROSUVASTATIN CALCIUM 20 MG TAB PO SCH (09:34)
[2020-07-25] MEDS: METOPROLOL SUCC 25MG EXT REL TAB PO SCH (09:34)
[2020-07-25] MEDS: ASPIRIN 81 MG ECTAB PO SCH (09:34)
[2020-07-25] MEDS: FAMOTIDINE 40 MG TABLET PO SCH (09:35)
[2020-07-25 10:19] LABS: Chol HDL Ratio 3; Cholesterol 204 mg/dl (0-200); HDL Cholesterol 76 mg/dl; LDL Cholesterol Calculated 115 mg/dl; Triglycerides 66 mg/dl (0-150); VLDL Cholesterol 13 mg/dl
[2020-07-25] MEDS ORDERED: MIDAZOLAM HCL 1 MG/ML 2ML VIAL ONE (12:59)
[2020-07-25] MEDS ORDERED: HEPARIN (PORCINE) 1000 UNIT/ML 10 ML (CATH LAB USE ONLY) ONE (12:59)
[2020-07-25] MEDS ORDERED: niCARdipine HCL INJ 2.5 MG/ML 10 ML AMP ONE (12:59)
[2020-07-25] MEDS ORDERED: fentaNYL citrate 100 MCG/2 ML VIAL ONE (12:59)
[2020-07-25] MEDS ORDERED: NITROGLYCERIN/D5W 100MCG/ML 20ML SYR ONE (13:00)
--- NOTE | 2020-07-25 13:36 | Pre Anesthesia Assessment ---
Date of Service July 25, 2020 Pre Sedation Assessment Vital Signs Temp Pulse Pulse Resp BP BP Pulse Ox 07/25/20 12:48 73 20 161/87 H 98 07/25/20 12:27 97.0 F L 07/25/20 11:58 62 21 150/82 H 97 07/25/20 09:27 73 20 156/97 H 07/25/20 08:51 70 19 162/100 H 97 07/25/20 08:00 97.9 F 79 07/25/20 05:12 98.1 F 78 24 173/113 H 98 07/25/20 04:30 63 14 155/89 H 95 07/25/20 04:00 66 14 141/83 H 97 07/25/20 03:30 63 14 157/88 H 99 07/25/20 03:00 69 15 158/95 H 98 07/25/20 02:30 65 15 164/92 H 97 07/25/20 02:00 62 16 162/85 H 98 07/25/20 01:30 64 16 159/89 H 97 07/25/20 00:18 69 18 170/94 H 99 07/25/20 00:01 98.2 F 73 18 156/94 H 98 Cardiovascular RRR, no murmur, no edema Respiratory normal respiratory effort, lungs clear to auscultation Pre-Sedation Airway Assessment Smoking Status: Never smoker Hx Sleep Apnea: No Hx Difficult Intubation: No Short, Thick Neck: No Thyromental Distance: > or= 3.5 Finger Breadths Oral Cavity: + Dentures Mallampati Class: III ASA: ASA2 NPO Status Date of Last Intake of Fluids: 07/25/20 Time of Last Intake of Fluids: 07:00 Last Oral Intake of Fluids Comment: sip with pills Date of Last Intake of Solid Food: 07/24/20 Time of Last Intake of Solid Foods: 17:30 Procedure Planning Contraindications for Sedation: none Current Medications Reviewed: Yes Notes The planned sedation has been discussed with the patient. Informed Consent was obtained. I have identified the patient, determined the appropriateness of sedation and have assessed the patient immediately prior to the procedure. All medicine(s) and interventions are by my order.
[2020-07-25] MEDS ORDERED: ADENOSINE IV SOLN 3 MG/ML 20 ML VIAL IV ONE (13:56)
--- NOTE | 2020-07-25 14:48 | Post Anesthesia Assessment ---
Date of Service July 25, 2020 Post Sedation Assessment Vital Signs Temp Pulse Pulse Resp BP BP Pulse Ox 07/25/20 14:40 68 20 144/83 H 98 07/25/20 14:25 70 20 158/84 H 97 07/25/20 12:48 73 20 161/87 H 98 07/25/20 12:27 97.0 F L 07/25/20 11:58 62 21 150/82 H 97 07/25/20 09:27 73 20 156/97 H 07/25/20 08:51 70 19 162/100 H 97 07/25/20 08:00 97.9 F 79 07/25/20 05:12 98.1 F 78 24 173/113 H 98 07/25/20 04:30 63 14 155/89 H 95 07/25/20 04:00 66 14 141/83 H 97 07/25/20 03:30 63 14 157/88 H 99 07/25/20 03:00 69 15 158/95 H 98 07/25/20 02:30 65 15 164/92 H 97 07/25/20 02:00 62 16 162/85 H 98 07/25/20 01:30 64 16 159/89 H 97 07/25/20 00:18 69 18 170/94 H 99 07/25/20 00:01 98.2 F 73 18 156/94 H 98 Recovery Score Activity: Moves 4 extremities Respiration: Deep Breath/Cough Circulation: +/-20% PreAnes Value Consciousness: Fully Awake Oxygen Saturation: > 92% On Room Air Post Anesthesia Score: 10 Discharge Sedation Level of Care: Fast Track Phase II Post Sedation Plan On clinical assessment, the patient appears to have tolerated the sedation without complications. Patient is recovering as anticipated. Patient will continue to be monitored by nursing and may be discharged when sedation discharge criteria are met per below protocol. Upon Completions of procedure up to 15 minutes continue every 5 minute vital signs and the P.A.R. score; then discharge to a Phase I or Fast Track to Phase II per the following guidelines: * Discharge Patient to appropriate Phase II area if PAR is 8 or greater or return to pre- procedure baseline. The post - procedure orders will be as directed. * If PAR score is less than 8 or not return to pre-procedure baseline then patient will follow Phase I monitoring till PAR is reached for Phase II. The Phase I may be done in procedure room or may call to secure a Phase I area. * If naloxone or flumazenil are used for reversal, hold in Phase I for continued monitoring from when last reversal dose was given for a minimum of 60 minutes or longer pending the nurse and/or physician discretion of patient condition before discharge to Phase II. Please call the Sedation Physician to re-evaluate and complete post-note for discharge to Phase II area. Do NOT discharge from procedure sedation or Phase 1 until post- sedation evaluation note is complete by procedure /sedation MD Sedation Discharge Instructions to be given to the patient at discharge to home.
--- NOTE | 2020-07-25 15:02 | Cardiac Catheterization ---
[facility] Data: Mine Technician Cardiac Status Clinical evaluation leading to the procedure CAD Presenation: Non STEMI Anginal Classification: CCS IV Heart Failure: No Cardiogenic Shock within 24 Hours: No Cardiac Arrest within 24 Hours: No Imaging Studies Past 6 Months: Yes Stress Studies Past 6 Months: No Diagnostic Physicians Name: Srinath Medina MD Status: Elective Closure Device Percutaneous Entry Location: Radial Closure Device: Radial Band Recommendations: Medical Therapy and/or Counseling Intraprocedure Events Significant Disection: No Perforation: No Cardiac Cath Procedure Full Procedure Date July 25, 2020 Pre-Procedure Diagnosis Pre-Procedure Diagnosis: Non STEMI AUC Score AUC Score: 8 Post-Procedure Diagnosis Post-Procedure Diagnosis: Moderate CAD and Normal Intracardiac Pressures Procedure(s) Performed Procedure(s) Performed: Coronary Angiography, Left Heart Cath and Fractional Flow [place] [employer] Operator Srinath Medina MD Licensing Manager(s) Alie Estimated Blood Loss Estimated Blood Loss: 15 Medication(s) Medication(s): Clopidogrel, Fentanyl, Heparin, Lidocaine 1%, Nicardipine, Nitroglycerin and Versed Summary of Findings Indication: NSTEMI Access: 6 Fr right radial artery Catheters: [place], JR4, EBU 3.5 guide Findings: LM -Short, no significant disease LAD -medium caliber, 50% proximal, 40-50% mid, mid to distal vessel tapers with mild diffuse disease and small as wraps around apex. D2 without significant disease. Circumflex -medium caliber vessel, no significant disease RCA -dominant, large caliber vessel, 40 to 50% proximal to mid disease, distal vessel without significant disease. LVEDP -1 FFR of LAD: -Left main cannulated with EBU 3.5 guide -BMW wire placed into distal LAD -ACIST Catheter placed across stenosis -FFR 0.85 -Coronary angiography revealed no apparent complications post wire/catheter removal Arterial Closure: TR band Summary: 1. Moderate nonobstructive coronary artery disease -50% proximal, 40 to 50% mid LAD (FFR 0.85). Small distal LAD with diffuse disease 40 to 50% earlymid RCA 2. Normal intracardiac filling pressure Recommendations: No high risk or flow-limiting CAD (myocardial infarction with nonobstructive coronary arteries) Recommend medical management. Antiplatelet, antianginal therapy per Dr. Del Valle Hemodynamics Rest Ao:: 150/79/117 Final Ao: 125/60/86 LV: 130/1 Recommendations Recommendations: Medical Therapy and/or Counseling Specimens Specimens: None Radiation Exposure (mGy) 440 Contrast (mls) 70 Fluids (cc crystalloids) Fluids (cc crystalloids): 125 Drains Drains: none Anesthesia moderate [id number] Procedural Complication(s) None Disposition PCU I attest to the content of the Intraoperative Record and any orders documented therein. Any exceptions are noted below. [facility] Card Cath Procedure Codes Cardiac Catheterization Procedure 1: Cardiovascular Cath Procedures: 25377 Coronaries and LHC (+/-LV) Procedure 2: Cardiovascular Cath Procedures: 92107 (Doppler) Pressure Wire Moderate Sedation Procedure 1: Sedation/Anesthesia: 15954 Mod Sedation by the same physician;Init15 Min Child Age 5 & Up Procedure 2: Sedation/Anesthesia: 45599 Mod Sedation by the same physician; Ea [id number] Minutes PG Care Time/CCT Total # of Minutes Spent Total Time Spent with Patient: Total time spent is greater than 50% in coordin ation of care (as documented) at patient's floor/unit and/or counseling patient:
[2020-07-25] MEDS ORDERED: ONDANSETRON INJ 2 MG/ML 2 ML VIAL IV PRN (15:03)
[2020-07-25] MEDS ORDERED: ACETAMINOPHEN 325 MG TAB PO PRN (15:03)
--- NOTE | 2020-07-25 15:07 | Electrocardiogram Report ---
Test Reason : Blood Pressure : / mmHG Vent. Rate : 072 BPM Atrial Rate : 072 BPM P-R Int : 138 ms QRS Dur : 124 ms QT Int : 414 ms P-R-T Axes : 035 030 -03 degrees QTc Int : 453 ms Normal sinus rhythm Right bundle branch block Abnormal ECG When compared with ECG of 19-JUN-2013 12:36, Right bundle branch block is now Present Confirmed by Sriram Nowak ([id number]) on 07/25/2020 3:06:40 PM Referred By: REFERRED SELF Confirmed By:Sriram Nowak
[2020-07-26 05:47] LABS: Chol HDL Ratio 3; Cholesterol 184 mg/dl (0-200); HDL Cholesterol 69 mg/dl; LDL Cholesterol Calculated 100 mg/dl; Triglycerides 73 mg/dl (0-150); VLDL Cholesterol 15 mg/dl
[2020-07-26 06:35] LABS: Estimated Average Glucose 134 mg/dl; Hemoglobin A1C 6.3 % (4.5-5.6)
[2020-07-26] MEDS: ROSUVASTATIN CALCIUM 20 MG TAB PO SCH (07:50)
[2020-07-26] MEDS: ASPIRIN 81 MG ECTAB PO SCH (07:50)
[2020-07-26] MEDS: METOPROLOL SUCC 25MG EXT REL TAB PO SCH (07:50)
[2020-07-26] MEDS: FAMOTIDINE 40 MG TABLET PO SCH (07:50)
[2020-07-26] MEDS ORDERED: VALSARTAN 80 MG TAB PO SCH (09:00)
--- NOTE | 2020-07-26 10:05 | Cardiology Progress Note ---
Date of Service July 26, 2020 Assessment & Plan Admission and Anticipated Discharge Date Admission Date: July 25, 2020 Subjective Feeling well this morning. She denies any chest pain just pressure chest heaviness. Denies any shortness of breath. She has no discomfort at her right arm cath site. She does note that she has significant GERD-like symptoms and I do wonder if her symptoms ultimately were esophageal spasm. She notes that she gets GERD symptoms up into her throat on a frequent basis she previously was on Zantac with reasonable control and when she was switched to Pepcid due to the Zantac recall she had worsening of her underlying symptoms. She does use a fair amount of Sudafed at home as needed for sinus headaches and sinus pressure and did not appreciate that that can lead to hypertension. Otherwise she feels well this morning she denies any palpitations or fluttering. Results & Data ([facility]) Vital Signs (Past 12 Hours) Vital Signs Temp Pulse Pulse Resp BP BP Pulse Ox 07/26/20 08:00 57 L 07/26/20 07:53 36.4 C L 74 16 151/85 H 95 07/26/20 04:00 57 L 15 163/85 H 94 07/26/20 03:00 58 L 16 141/79 H 92 07/26/20 02:00 58 L 17 141/86 H 94 07/26/20 01:00 63 15 152/95 H 94 07/26/20 00:00 53 L 15 138/84 94 07/25/20 23:00 59 L 14 143/81 H 94 She is awake alert oriented x3 she is in no acute distress HEENT 2+ carotid upstrokes no evidence of carotid bruits lungs: Clear to auscultation bilaterally no rales rhonchi or wheezing heart: Regular rate and rhythm no appreciable murmurs rubs or gallops abdomen: Soft nontender distended positive bowel sounds extremities: No clubbing cyanosis or edema she had a 2+ right radial pulse her r ight hand was warm to touch Impressions: 1. Mildly elevated troponin likely secondary to hypertensive heart disease 2. Moderate coronary artery disease with moderate LAD and circumflex disease for medical therapy 3. Hypertension 4. Mild left ventricular perjury of preserved left ventricular systolic function 5. Significant symptoms of GERD and possible esophageal spasm She should be discharged home on aspirin her Toprol should be 25 mg at night and added valsartan this morning 160 mg daily. In addition she should be on Crestor 20 mg daily and she will need a lipid profile and a complete metabolic profile in approximately 6 weeks time. We will stop her Pepcid which is inadequately treating her reflux symptoms and switch her over to a proton pump inhibitor this morning. She should be discharged on that as well. She had a number of questions which I answered in detail. At this point she has no significant restrictions other than post cath restrictions for the next 3 days or so. We will see her in the office in the next 10 to 14 days and arrange for that appointment. We did discuss avoiding Sudafed and any medications with a D attached to them like Mucinex D or Claritin-D.
[2020-07-26] MEDS ORDERED: PANTOprazole 40 MG TAB PO SCH (10:15)
--- NOTE | 2020-07-26 10:37 | Discharge Summary ---
Date of Service July 26, 2020 Admission HPI Per Admitting Provider Coni Kerns is a pleasant 74yo C female with history of GERD presenting with chest pain. Patient had initial episode of chest pain on 07/21/20. She was sitting at rest when she developed sudden onset of chest discomfort - bandlike across anterior chest and into her back. Pain was severe, 10/10 and lasted 1-2 minutes. She had associated nausea. Patient had recurrence of chest pain yesterday 07/24/20 x 3 episodes. Episodes occurred while patient was at rest and lasted 1-2 minutes. She had nausea as well as feeling hot. She has had increase in belching over the last several days as well. She denies SOB/palp itations/abdominal pain/vomiting/diarrhea/dizziness. Patient reports becoming mildly SOB with exertion such as climbing stairs - ongoing for "a while". She denies exertional chest discomfort No personal history of DM, HLP, CAD. No prior CHF or arrhythmia. She has never had a cardiac catheterization or seen a crystal lapper. She did have a stress test many years ago. No additional complaints at this time. ER Course: [place], ASA Principal Diagnosis chest pain Discharge Exam General: patient resting comfortably, NAD, non-toxic in appearance, AA&O x 4 Skin: warm, dry, intact, no rashes or lesions HEENT: NC/AT, PERRL, EOMI, anicteric sclera, conjunctiva without injection, external ear normal to inspection and nontender, nares patent, moist mucus membranes, dentition intact, no oropharyngeal lesions, neck supple, trachea midline, no LAD, no thyromegaly, no JVD Heart: +S1/S2, regular, no m/r/g, no reproducible chest wall pain or epigastric pain Lungs: equal air entry bilaterally, no rales/rhonchi/wheezes Abd: +BS, soft, NT/ND, no masses/organomegaly/ascites Ext: warm, 2+ pulses in UE/LE bilaterally, no clubbing/cyanosis or edema Neuro: nonfocal, patient AA&O x 4, speech intact, no facial droop, moving all extremities on command with equal strength 5/5 Discharge Data Allergies Allergy/AdvReac Type Severity Reaction Status Date / Time adhesive Allergy Mild Unknown Unverified 07/25/20 00:21 Consultations 07/25/20 01:05 ED Decision to Admit Stat 07/25/20 04:59 Consult Cardiology Routine 07/25/20 08:56 Consult Cardiology Routine Procedures Performed Operation Date: 07/25/20 12:30 Actual Procedures p Cath, Left with Cors and Vent - Mitchell Medina MD s Cineradiography w/Routine Exam - Mitchell Medina MD s Fraction Flow [place] SGL Ves - Mitchell Medina MD Ordered Studies 07/25/20 13:25 CL Cath Imgs for PACS use only Stat Hospital Course (1) Chest pain: 74yo C female presenting with several episodes of bandlike chest pain over the last 3 days. Patient had 3 episodes today. Troponin is elevated at 0.119. EKG with new RBBB. Patient presently with no chest discomfort. No history of CAD, DM, HTN or HLP. Patient is a non-smoker -Admit to medical with telemetry -Trend troponin q 6 hours. If repeat troponin is elevated will initiate heparin gtt -Check 2D echo -Check Lipid panel and Hgb AIC for risk stratification for possible CAD -ASA 81mg po daily for now -Nitro SL PRN chest pain -Cardiology consultation appreciated She should be discharged home on aspirin her Toprol should be 25 mg at night and added valsartan this morning 160 mg daily. In addition she should be on Crestor 20 mg daily and she will need a lipid profile and a complete metabolic profile in approximately 6 weeks time. We will stop her Pepcid which is inadequately treating her reflux symptoms and switch her over to a proton pump inhibitor this morning. She should be discharged on that as well. She had a number of questions which I answered in detail. At this point she has no significant restrictions other than post cath restrictions for the next 3 days or so. We will see her in the office in the next 10 to 14 days and arrange for that appointment. We did discuss avoiding Sudafed and any medications with a D attached to them like Mucinex D or Claritin-D. Will discharge patient home. (2) GERD (gastroesophageal reflux disease): Chronic -will switch to PPI. Total Time Total Time Spent Total Time Spent (In Minutes): 32 Total Time Includes: Examination of the Patient, Discharge Planning and Medication Reconciliation Discharge Plan Discharge Items Patient Disposition: Home - Self-Care Reason For Visit: CHEST PAIN Discharge Diagnosis: Chest Pain Condition on Discharge: Good Activity: Resume your previous activity Non-emergency contact: Primary Care Provider Call non-emergency contact if: you have any medication questions Follow-up/Referrals: Lizandro Garcia MD [Primary Care Provider] - Diet: Heart Healthy Addtl Attending Provider Instructions: You had a cardiac catheterization: your cardiac cath was negative. You will be discharged home on aspirin, and Toprol (25 mg at night) Will add valsartan this morning 160 mg daily. In addition she should be on Crestor 20 mg daily You will need a lipid profile and a complete metabolic profile in approximately 6 weeks time. We stopped her Pepcid as it was not helping with your reflux symptoms and will switch you over to a proton pump inhibitor (pantoprazole) Followup with cardiology in the next 10 to 14 days and arrange for that appointment. Please avoid Sudafed and any medications with a D attached to them like Mucinex D or Claritin-D. Pending Studies at Discharge: No Stand-Alone Forms: My [facility], Smoking Cessation Medications and DC Order Prescriptions: New metoprolol succinate 25 mg Tablet Extended Release 24 Hr 25 mg PO QPM Qty: 30 RF: 0 valsartan [Diovan] 80 mg Tablet 160 mg PO QAM Qty: 60 RF: 0 rosuvastatin [Crestor] 20 mg Tablet 20 mg PO QPM Qty: 30 RF: 0 aspirin 81 mg Tablet,Delayed Release (Dr/Ec) 81 mg PO DAILY Qty: 30 RF: 0 pantoprazole 40 mg Tablet,Delayed Release (Dr/Ec) 40 mg PO QAM Qty: 30 RF: 0 Discontinued famotidine [Pepcid] 20 mg Tablet 20 - 40 mg PO DAILY PRN (Reason: Heartburn) RF: 0 pseudoephedrine HCl [Sudafed] 60 mg Tablet 60 mg PO Q6H PRN (Reason: Congestion) RF: 0 Discharge Orders: Discharge Order (Routine); Ordered 07/26/20 Ordered By: Bruce Galvez/Other Patient Handouts: 5 Steps for Eating Healthier, A1C Admission Data Admit Date/Time: 07/25/20 02:52 Attending Provider: Bruce Santana Admit Provider: Daisy White Primary Care Provider: Lizandro Garcia Other Providers: Daisy White ; Thanh Del Valle ; Mitchell Medina Coding Level of Care Code D/C Day Management >30 mins Diagnoses Chest pain R07.9 Chest pain type: unspecified GERD (gastroesophageal reflux disease) K21.9 Esophagitis presence: esophagitis presence not specified
== END 2020-07-26 11:37 | disposition home or self-care (01) | DRG 287 ==
LOC: ED 23:51 → SUATTDRO 07-25 02:52 → INTOOBSV 07-25 02:52 → 1E 07-25 02:52